=== PATIENT | male | born 1985 | race Caucasian/White ===

== ENCOUNTER 2016-09-07 14:13 | Emergency (ER) | payer BC ==
[~2016-09-07] VITALS: Ht 180.3 cm; Wt 118.0 kg
[~2016-09-07 14:13] MED LIST: RMCI INJ
[2016-09-07 14:20] VITALS: TEMP 36.7; Ht 180.3 cm; Wt 118.0 kg
[2016-09-07] MEDS ORDERED: FEXO1TAB49 PO (15:08)
[2016-09-07] MEDS ORDERED: SODIUM CHLORIDE 0.9% 1000ML 1,000 ML IV STA (15:35)
[2016-09-07] MEDS ORDERED: ONDANSETRON INJ 2 MG/ML 2 ML VIAL IV STA (15:35)
[2016-09-07] MEDS ORDERED: HYDROmorphone INJ 1 MG/ML SYR IV STA (15:35)
[2016-09-07 16:08] LABS: BASO % 0.5 %; BASO ABS # 0.04 K/uL (0-0.2); COMPLETE YES; EOS % 6.6 %; HEMATOCRIT 41.1 % (42-52); IG% 0.2 %; LYMPH % 18.7 %; LYMPH ABS # 1.61 K/uL (1.2-3.4); MEAN CELL VOLUME 82.5 fL (80-100); MEAN CORPUSCULAR HEMOGLOBIN 30.5 pg (25-34); MEAN PLATELET VOLUME 10.4 fL (7.4-10.4); MONO % 7.6 %; NEUT % 66.4 %; PLATELET COUNT 286 K/uL (130-400); RED BLOOD COUNT 4.98 M/uL (4.7-6.1)
[2016-09-07 16:11] LABS: URINE APPEARANCE CLEAR (CLEAR); URINE BILIRUBIN NEG (NEG); URINE COLOR YELLOW; URINE NITRITE NEG (NEG); URINE SPECIFIC GRAVITY 1.013 (1.000-1.030); UROBILINOGEN NEG (NEG); ZZUR CULT IF INDIC CLEAN CATCH NO
[2016-09-07 16:16] LABS: MANUAL MICROSCOPIC REQUIRED? NO; REVIEW REQ? NO
[2016-09-07 16:28] LABS: BUN/CREATININE RATIO 14.2 (10-20); CALCIUM 8.9 mg/dl (8.5-10.1); CREATININE 1.2 mg/dl (0.60-1.40); POTASSIUM 3.8 mmol/L (3.5-5.1)
[2016-09-07 16:31] LABS: ALB/GLOB RATIO 1.2 (0.9-2)
--- NOTE | 2016-09-07 16:36 | DIAGNOSTIC IMAGING REPORT ---
PA CHEST RADIOGRAPH AND UPRIGHT AND SUPINE AP RADIOGRAPHS OF THE ABDOMEN CLINICAL HISTORY: Right-sided abdominal pain. History of Crohn's and small bowel obstruction. COMPARISON STUDY: Chest radiograph and abdominal series and CT of the abdomen and pelvis August 21, 2015. FINDINGS: No pneumothorax or pleural effusion is present. No consolidation is identified. Cardiomediastinal silhouette is stable. There is no evidence of pulmonary edema. There is no free air. No dilated loops of bowel are identified. IMPRESSION: 1. No free air or evidence of bowel obstruction. 2. No acute cardiopulmonary findings. Electronically signed by: Kevin Mendez M.D. 09/07/2016 4:34 PM Dictated Date/Time: 09/07/2016 4:33 PM
[2016-09-07] MEDS ORDERED: OPTIRAY 320 IV PRN (17:00)
[2016-09-07 17:50] VITALS: O2SAT 97
[2016-09-07] MEDS ORDERED: HYDROmorphone INJ 1 MG/ML SYR ONE (17:50)
[2016-09-07] MEDS ORDERED: ONDANSETRON INJ 2 MG/ML 2 ML VIAL ONE (17:50)
--- NOTE | 2016-09-07 18:26 | DIAGNOSTIC IMAGING REPORT ---
CT OF THE ABDOMEN AND PELVIS WITH CONTRAST CLINICAL HISTORY: Right lower quadrant pain. Crohn's disease. COMPARISON STUDY: CT of the abdomen and pelvis August 21, 2015 TECHNIQUE: Following IV administration of 119 mL of Optiray-320, axial images of the abdomen and pelvis were obtained from the lung bases to the proximal femurs. Images were reviewed in the axial, sagittal, and coronal planes. IV contrast was administered without complication. CT DOSE: 1091.94 mGy.cm FINDINGS: A few small nodules within visualized portions the lower lungs are unchanged since exam of April 07, 2014. These are benign. No pneumatosis, free air or portal venous gas is present. There may be a calcite gallstone within the gallbladder. The gallbladder is not distended. The liver, spleen, adrenal glands, kidneys and pancreas are normal. There is no hydronephrosis. No biliary or pancreatic ductal dilatation is present. The caliber and wall thickness of small and large bowel are normal. The appendix is normal. There is no evidence for a bowel obstruction. No abscess is present. Skeletal structures are unremarkable. Slight wall thickening within the ileum shown on prior CT has likely improved. IMPRESSION: 1. No acute process within the abdomen or pelvis. Normal appendix. 2. No bowel obstruction. No CT evidence of active inflammatory bowel disease. No significant bowel wall thickening or hyperemia. Slight wall thickening within the ileum shown on prior CT has improved. Electronically signed by: Kevin Mendez M.D. 09/07/2016 6:24 PM Dictated Date/Time: 09/07/2016 6:16 PM
[2016-09-07] MEDS ORDERED: HYDR-5688 PO (18:42)
--- NOTE | 2016-09-07 18:43 | EMERGENCY ROOM VISIT NOTE ---
History First contact with patient: 15:22 Chief Complaint: ABDOMINAL PAIN Stated Complaint: ABD. PAIN, NAUSEA Nursing Triage Summary: RLQ abd pain last night and today, worsening. Nausea, no vomiting. hx of chrons. Radiates to back. History of Present Illness The patient is a 31 year old male who presents to the Emergency Room with complaints of right-sided abdominal pain which began this morning. The patient has a history of Crohn's. He reports that this morning when he woke up, he had some mild discomfort in his right lower abdomen. He states the pain has worsened gradually throughout the day. The pain radiates to the back. He has associated nausea, but no vomiting. He had a normal bowel movement this morning. He states that he has had multiple Crohn's flareups before including fistulas and abscesses. He currently receives Remicade infusions every 8 weeks , which she states has significantly improved his symptoms. He sees [facility]. He has been using Zofran at home, but has been taking nothing for pain. He rates his discomfort an 8/10. He denies any fevers, blood in the stools or urinary symptoms. Review of Systems A complete 10-point Review of Systems was discussed with the patient, with pertinent positives and negatives listed in the History of Present Illness. All remaining Review of Systems questions can be considered negative unless otherwise specified. Past Medical/Surgical History Medical Problems: (1) Amblyopia (2) Atopic dermatitis (3) Crohns disease (4) Eczema (5) Extrinsic asthma (6) SBO (small bowel obstruction) Family History Fernandez's Esophagus FH: Crohn's disease FH: esophageal cancer Social History Smoking Status: Never Smoker Alcohol Use: occasionally Drug Use: none Marital Status: in relationship Occupation Status: employed Current/Historical Medications Scheduled Fexofenadine Hcl ([facility]), 180 MG PO DAILY Infliximab (Remicade), 1 DOSE INJ [id number] Scheduled PRN Hydrocodone/Acetaminophen 5MG/325MG ([employer] 5MG/325MG), 1-2 TABLET PO Q4H PRN for Pain Allergies Coded Allergies: No Known Allergies (Unverified , 03/30/16) Physical Exam Vital Signs Date Time Temp Pulse Resp B/P Pulse Ox O2 Delivery O2 Flow Rate FiO2 09/07/16 18:47 90 16 155/88 97 Room Air 09/07/16 18:00 98 09/07/16 17:50 97 Room Air 09/07/16 17:49 95 16 161/85 97 Room Air 09/07/16 16:13 72 18 135/88 97 Room Air 09/07/16 14:20 36.7 109 18 146/92 98 Room Air Physical Exam VITALS: Vitals are noted on the nurse's note and reviewed by myself. Vital signs stable. GENERAL: This is a 31-year-old male, in no acute distress, nondiaphoretic, well- developed well-nourished. SKIN: Capillary reflex less than 2 seconds. HEART: Regular rate and rhythm without murmurs gallops or rubs. LUNGS: Clear to auscultation bilaterally without wheezes, rales or rhonchi. No retractions or accessory muscle use. ABDOMEN: Positive bowel sounds x 4. Soft with minimal tenderness over the right lower quadrant. No guarding or rebound tenderness. NEURO: Patient was alert and oriented to person place and time. Medical Decision & Procedures ER Provider Diagnostic Interpretation: PA CHEST RADIOGRAPH AND UPRIGHT AND SUPINE AP RADIOGRAPHS OF THE ABDOMEN IMPRESSION: 1. No free air or evidence of bowel obstruction. 2. No acute cardiopulmonary findings. CT OF THE ABDOMEN AND PELVIS WITH CONTRAST IMPRESSION: 1. No acute process within the abdomen or pelvis. Normal appendix. 2. No bowel obstruction. No CT evidence of active inflammatory bowel disease. No significant bowel wall thickening or hyperemia. Slight wall thickening within the ileum shown on prior CT has improved. Laboratory Results 09/07/16 15:50 Red Blood Count 4.98, Mean Corpuscular Volume 82.5, Mean Corpuscular Hemoglobin 30.5, Mean Corpuscular Hemoglobin Concent 37.0, Mean Platelet Volume 10.4, Neutrophils (%) (Auto) 66.4, Lymphocytes (%) (Auto) 18.7, Monocytes (%) (Auto) 7.6, Eosinophils (%) (Auto) 6.6, Basophils (%) (Auto) 0.5, Neutrophils # (Auto) 5.71, Lymphocytes # (Auto) 1.61, Monocytes # (Auto) 0.65, Eosinophils # (Auto) 0.57, Basophils # (Auto) 0.04 09/07/16 15:50 Test 09/07/16 15:40 09/07/16 15:50 Urine Color YELLOW Urine Appearance CLEAR (CLEAR) Urine pH 7.0 (4.5-7.5) Urine Specific [place] 1.013 (1.000-1.030) Urine Protein NEG (NEG) Urine Glucose (UA) NEG (NEG) Urine Ketones NEG (NEG) Urine Occult Blood NEG (NEG) Urine Nitrite NEG (NEG) Urine Bilirubin NEG (NEG) Urine Urobilinogen NEG (NEG) Urine Leukocyte Esterase NEG (NEG) White Blood Count 8.60 K/uL (4.8-10.8) Red Blood Count 4.98 M/uL (4.7-6.1) Hemoglobin 15.2 g/dL (14.0-18.0) Hematocrit 41.1 % (42-52) Mean Corpuscular Volume 82.5 fL (80-100) Mean Corpuscular Hemoglobin 30.5 pg (25-34) Mean Corpuscular Hemoglobin Concent 37.0 g/dl (32-36) Platelet Count 286 K/uL (130-400) Mean Platelet Volume 10.4 fL (7.4-10.4) Neutrophils (%) (Auto) 66.4 % Lymphocytes (%) (Auto) 18.7 % Monocytes (%) (Auto) 7.6 % Eosinophils (%) (Auto) 6.6 % Basophils (%) (Auto) 0.5 % Neutrophils # (Auto) 5.71 K/uL (1.4-6.5) Lymphocytes # (Auto) 1.61 K/uL (1.2-3.4) Monocytes # (Auto) 0.65 K/uL (0.11-0.59) Eosinophils # (Auto) 0.57 K/uL (0-0.5) Basophils # (Auto) 0.04 K/uL (0-0.2) RDW Standard Deviation 38.9 fL (36.4-46.3) RDW Coefficient of Variation 13.0 % (11.5-14.5) Immature Granulocyte % (Auto) 0.2 % Immature Granulocyte # (Auto) 0.02 K/uL (0.00-0.02) Anion Gap 12.0 mmol/L (3-11) Est Creatinine Clear Calc Drug Dose 114.4 ml/min Estimated GFR () 91.5 Estimated GFR (Non- 79.0 BUN/Creatinine Ratio 14.2 (10-20) Calcium Level 8.9 mg/dl (8.5-10.1) Total Bilirubin 0.3 mg/dl (0.2-1) Aspartate Amino Transf (AST/SGOT) 19 U/L (15-37) Alanine Aminotransferase (ALT/SGPT) 31 U/L (12-78) Alkaline Phosphatase 65 U/L (45-117) Total Protein 7.3 gm/dl (6.4-8.2) Albumin 4.0 gm/dl (3.4-5.0) Globulin 3.3 gm/dl (2.5-4.0) Albumin/Globulin Ratio 1.2 (0.9-2) Lipase 205 U/L (73-393) Medications Administered Medications (Trade) Dose Ordered Sig/Anahi Route Start Time Stop Time Status Last Admin Dose Admin Sodium Chloride (Nss 1000ml) 1,000 ml @ 999 mls/hr Q1H1M STAT IV 09/07/16 15:35 09/07/16 16:35 DC 09/07/16 16:06 999 MLS/HR Ondansetron HCl (Zofran Inj) 4 mg NOW STAT IV 09/07/16 15:35 09/07/16 15:37 DC 09/07/16 16:06 4 MG Hydromorphone HCl (Dilaudid Inj) 1 mg NOW STAT IV 09/07/16 15:35 09/07/16 15:37 DC 09/07/16 16:06 1 MG Hydromorphone HCl (Dilaudid Inj) 1 mg STK-MED ONCE .ROUTE 09/07/16 17:50 09/07/16 17:51 DC 09/07/16 17:57 1 MG Ondansetron HCl (Zofran Inj) 4 mg STK-MED ONCE .ROUTE 09/07/16 17:50 09/07/16 17:51 DC 09/07/16 17:57 4 MG Medical Decision Differential diagnosis includes Crohn's flareup, abscess, diverticulitis, fistula, appendicitis, bowel obstruction, among others. The patient was evaluated as above. Labs were drawn and IV access was obtained. Imaging studies were performed and read by radiology as above. The patient was medicated with 1 mg Dilaudid and 4 mg Zofran. The patient was hydrated with 1 L normal saline solution. He did require an additional 1 mg Dilaudid and 4 mg Zofran during his stay. The patient was reassessed multiple times during their stay in the emergency department and remained in stable condition. The patient is a 31-year-old male who presents today complaining of right-sided abdominal pain. Labs revealed no leukocytosis, anemia or concerning electrolyte abnormalities. Urinalysis was not suggestive of infection. Abdominal series was performed and showed no acute findings. The patient did not have improvement after 1 mg Dilaudid and [address] of the abdomen and pelvis was then performed and did not show any acute findings within the abdomen. The patient will follow-up with his duplication specialist. He will return for worsening symptoms. Based on the patient's presentation, lab results, and imaging studies, I feel the patient is stable for outpatient treatment. The patient's case was reviewed with Dr. Haskins, ED attending physician, who agreed with my assessment and treatment plan. Discharge instructions were reviewed with the patient. The patient verbalized understanding of my assessment and treatment plan and was discharged home in good condition. Impression Primary Impression: Abdominal pain, RLQ Departure Information Dispostion Home / Self-Care Condition GOOD Prescriptions Hydrocodone/Acetaminophen 5MG/325MG ([employer] 5MG/325MG) Tab 1-2 TABLET PO Q4H Y for Pain, #15 TAB For Initial Treatment Prov: Eva Whelan PA-C 09/07/16 Referrals Augustina Marques M.D. (PCP) Patient Instructions My [facility] Additional Instructions You have been treated in the Emergency Department your Abdominal Pain. Laboratory results and imaging studies have ruled out any emergent causes for your abdominal pain which would warrant admission or surgery. You have been prescribed [employer] to be used for pain control. This is a narcotic medication. You cannot drive or consume alcohol while on this medicine. This medicine should only be used for pain that cannot be controlled with over-the- counter pain medicines. For pain control, you can use the following [id number] medicines (if >12 yo): - Regular strength (325mg/tab) Tylenol (acetaminophen) 2 tabs every 4-6 hours as needed. Do not exceed 12 tablets in a 24 hour period. Avoid taking more than 4 grams (4000 mg) of Tylenol per day. This includes any other sources of acetaminophen you may take on a regular basis. - Regular strength (200 mg/tab) Advil (ibuprofen) 1-2 tabs every 4-6 hours as needed. Do not exceed a dose of 3200 mg per day. Drink plenty of water and stay well hydrated. As with any trip to the Emergency Department, you should follow-up with your Primary Care Provider from today's visit. You should also follow-up with your duplication specialist within the next 1-2 days. Return to the emergency department if your symptoms persist despite treatment plan outlined above or if the following symptoms occur: increased fevers, chills , worsening nausea/vomiting, blood in your stool or urine.
[2016-09-07 18:47] VITALS: BP 155/88; PULSE 90; O2SAT 97
== END 2016-09-07 19:18 | disposition home or self-care (01) ==
LOC: C.EDB 14:15
DX: R10.31 Right lower quadrant pain (principal); R11.0 Nausea; K50.90 Crohn's disease, unspecified, without complications; H53.009 Unspecified amblyopia, unspecified eye; J45.909 Unspecified asthma, uncomplicated; Z80.0 Family history of malignant neoplasm of digestive organs; Z83.79 Family history of other diseases of the digestive system